=== PATIENT | male | born 1945 | race Caucasian/White ===

== ENCOUNTER 2020-03-07 20:25 | Emergency (ER) | payer MEDICARE, OTHER ==
[~2020-03-07] VITALS: Ht 177.8 cm; Wt 86.6 kg
[~2020-03-07 20:25] MED LIST: HYDR-3237 PO; SIMV10TA18 PO; TIZA-106 PO; VALS1TAB25 PO
--- NOTE | 2020-03-07 20:33 | NUR ---
PT BP ELEVATED IN TRIAGE. PT DENIES ANY PAINTING OR CHEST PAIN
[2020-03-07] MEDS ORDERED: LIDOCAINE-MPF 1%, 5ML ONE (21:13)
[2020-03-07] MEDS ORDERED: LIDOCAINE 1%, 10ML INFIL ONE (21:30)
[2020-03-07] MEDS ORDERED: NEOSPORIN OINT. PKT 1 PACKET ONE (22:45)
[2020-03-07 23:48] VITALS: BP 165/101
== END 2020-03-07 23:49 | disposition home or self-care (01) ==
LOC: ED 21:31
DX: S01.81XA Laceration without foreign body of other part of head, initial encounter (principal); S61.317A Laceration without foreign body of left little finger with damage to nail, initial encounter; W01.0XXA Fall on same level from slipping, tripping and stumbling without subsequent striking against object, initial encounter; Y93.89 Activity, other specified; Y92.098 Other place in other non-institutional residence as the place of occurrence of the external cause; Y99.8 Other external cause status
CPT/HCPCS: 12041; 99284